=== PATIENT | male | born 1970 ===

== ENCOUNTER 2017-06-27 23:28 | Emergency (ER) | payer SELFPAY ==
[~2017-06-27] VITALS: Ht 172.7 cm; Wt 86.2 kg
[2017-06-27 23:57] VITALS: Ht 172.7 cm; Wt 86.2 kg
[2017-06-28 00:49] VITALS: BP 124/70
== END 2017-06-28 00:49 | disposition home or self-care (01) ==
LOC: ED 23:28
DX: S09.90XA Unspecified injury of head, initial encounter (principal); F10.129 Alcohol abuse with intoxication, unspecified; W01.0XXA Fall on same level from slipping, tripping and stumbling without subsequent striking against object, initial encounter; Y93.89 Activity, other specified; Y92.89 Other specified places as the place of occurrence of the external cause; Y99.8 Other external cause status